=== PATIENT | male | born 1965 | race Caucasian/White ===

== ENCOUNTER 2017-04-04 12:54 | Emergency (ER) | payer BC ==
[~2017-04-04] VITALS: Ht 190.5 cm; Wt 86.2 kg
--- NOTE | ~2017-04-04 | EKG ---
[place] [address] [facility] [place] [address] ELECTROCARDIOGRAM REPORT Name: FLORINDA HERRERA Room #: [facility] [id number] Admission: 04/04/17 Attend Phys: Discharge: 04/04/17 Date of : 63 Report #: [id number] THIS REPORT FOR: //name// [facility] ED Test Date: 2017-04-04 Test Time: 13:49:10 Pat Name: FLORINDA HERRERA Department: Room: Gender: Audit Reviewer: Jocy HUDSON : 1965 Requested By: Raheem Shetty Order Number: [id number] MD: Nick Rhodes Measurements Intervals [place] Rate: 63 P: 51 VT: 163 QRS: -67 QRSD: 109 T: 41 QT: 408 QTc: 418 Interpretive Statements Sinus rhythm Inferior infarct, old No previous ECG available for comparison Electronically Signed On 04-05-2017 8:23:54 CDT by Nick Rhodes [email or web address] <ELECTRONICALLY SIGNED> By: Nick Rhodes MD, [facility] 04/05/17 0823 [id number] Nick Rhodes MD, FACC /EPI
[2017-04-04] MEDS ORDERED: LIPITOR10 MG PO (13:01)
[2017-04-04 14:00] LABS: ABSOLUTE NEUTROPHILS 7.1 thou/uL (1.4-8.2); BASOPHILS 1.2 % (0.0-2.0); EOSINOPHILS 1.3 % (0.0-3.0); HEMATOCRIT 38.5 % (42.0-52.0); HEMOGLOBIN 13.6 gm/dL (14.0-18.0); LYMPHOCYTES 18.8 % (24.0-44.0); MCHC 35.4 g/dL (28.0-37.0); MCV 84.8 fL (80.0-100.0); MONOCYTES 6.7 % (1.0-8.0); PLATELET COUNT 228 thou/uL (150-400); RBC 4.54 mil/uL (4.50-6.00); WBC 9.8 thou/uL (4.0-11.0)
[2017-04-04 14:02] LABS: ANION GAP 7 mmol/L (7-16); BUN 20 mg/dL (7-18); CALCIUM 8.5 mg/dL (8.5-10.1); CHLORIDE 110 mmol/L (98-107); CO2 25 mmol/L (21-32); CREATININE 1.2 mg/dL (0.7-1.3); GLUCOSE 110 mg/dL (74-106); POTASSIUM 3.6 mmol/L (3.5-5.1); SODIUM 142 mmol/L (136-145)
[2017-04-04 14:10] LABS: MANUAL DIFF NO
[2017-04-04 14:12] LABS: ALBUMIN 3.1 g/dL (3.4-5.0); ALKALINE PHOSPHATASE 87 U/L (46-116); SGOT 25 U/L (15-37); SGPT 42 U/L (30-65); TOTAL BILIRUBIN 0.5 mg/dL (<0.1-1.0); TOTAL PROTEIN 5.9 g/dL (6.4-8.2); TROPONIN-I < 0.04 ng/mL (<0.04-0.07)
[2017-04-04 14:42] VITALS: BP 122/68
== END 2017-04-04 14:43 | disposition home or self-care (01) ==
LOC: ER 12:54
PROVIDERS: Physician Assistant
DX: R55 Syncope and collapse (principal); F17.210 Nicotine dependence, cigarettes, uncomplicated